=== PATIENT | female | born 1970 | race Two or more races ===

== ENCOUNTER 2024-08-24 09:03 | Emergency (ER) | payer OTHER ==
[~2024-08-24] VITALS: Ht 162.6 cm; Wt 56.7 kg
[2024-08-24] MEDS ORDERED: CEFTRIAXONE SODIUM 1,000 MG VIAL ONE (09:58)
[2024-08-24] MEDS ORDERED: LIDOCAINE HCL 1% 10ML VIAL ONE (09:58)
[2024-08-24] MEDS ORDERED: CEFTRIAXONE SODIUM 1,000 MG VIAL IM ONE (10:00)
[2024-08-24] MEDS ORDERED: TETANUS & DIPHTHERIA TOX,ADULT 0.5 ML VIAL IM ONE (10:00)
== END 2024-08-24 10:46 | disposition home or self-care (01) ==
LOC: ER 09:04
DX: S81.852A Open bite, left lower leg, initial encounter (principal); W54.0XXA Bitten by dog, initial encounter; Y93.89 Activity, other specified; Y92.413 State road as the place of occurrence of the external cause
CPT/HCPCS: 12005; 90471; 90714; J1670